=== PATIENT | female | born 1990 | race American Indian/Alaskan Native ===

== ENCOUNTER 2018-07-28 21:04 | Emergency (ER) | payer OTHER ==
[2018-07-28 21:15] VITALS: BMI 32.9
[2018-07-28 22:02] VITALS: BP 95/66; PULSE 94; RESP 18; TEMP 98.5; O2SAT 97
--- NOTE | 2018-07-29 04:44 | ED PDOC ---
Arrival/HPI - General Chief Complaint: Female Genitourinary Time Seen by Provider: 07/28/18 21:06 Historian: Patient - History of Present Illness Narrative History of Present Illness (Text): 27 y/o 36 week female presents to the ED c/o clear vaginal discharge and abdominal pain x 1 day. She thinks her water may have broken this morning. Symptoms began at 8am and patient presented to [facility] ED where she was evaluated by the obstetrics team and discharged home. Pt was advised to return to ED if symptoms persist, prompting visit to [facility]. Pt has been "leaking" clear vaginal fluid since 8am this morning. Associated mild lower abdominal cramping every 20 minutes, states it does not feel like contractions she had with her previous . Denies fever, chills, vaginal bleeding, back pain, nausea, vomiting, diarrhea, urinary symptoms, or any other associated symptoms. Past Medical History - Provider Review Nursing Documentation Reviewed: Yes - Infectious Disease Hx of Infectious Diseases: None - Psychiatric Hx Substance Use: No - Anesthesia Hx Anesthesia: No Family/Social History - Physician Review Nursing Documentation Reviewed: Yes Family/Social History: No Known Family HX Smoking Status: Never Smoked Hx Alcohol Use: No Hx Substance Use: No Allergies/Home Meds Allergies/Adverse Reactions: Allergies No Known Allergies Allergy (Verified 07/28/18 21:15) Review of Systems - Review of Systems Constitutional: Normal. absent: Fevers Eyes: Normal. absent: Vision Changes ENT: Normal. absent: Sore Throat, Sinus Congestion Respiratory: Normal. absent: SOB, Cough Cardiovascular: Normal. absent: Chest Pain, Palpitations Gastrointestinal: Abdominal Pain. absent: Nausea, Vomiting Genitourinary Female: Vaginal Discharge. absent: Dysuria Musculoskeletal: Normal. absent: Back Pain, Neck Pain Skin: Normal. absent: Rash Neurological: Normal. absent: Headache, Dizziness Physical Exam Vital Signs Reviewed: Yes Vital Signs Temp Pulse Resp BP Pulse Ox 07/28/18 21:05 98.5 F 94 H 18 95/66 L 97 Temperature: Afebrile Blood Pressure: Hypotensive Pulse: Regular Respiratory Rate: Normal Appearance: Positive for: Well-Appearing, Non-Toxic, Comfortable Pain Distress: None Mental Status: Positive for: Alert and Oriented X 3 - Systems Exam Head: Present: Atraumatic, Normocephalic Pupils: Present: PERRL Extroacular Muscles: Present: EOMI Conjunctiva: Present: Normal Mouth: Present: Moist Mucous Membranes Neck: Present: Normal Range of Motion Respiratory/Chest: Present: Clear to Auscultation, Good Air Exchange. No: Respiratory Distress, Accessory Muscle Use Cardiovascular: Present: Regular Rate and Rhythm, Normal S1, S2, Peripheal Pulses Present Abdomen: Present: Tenderness (mild LLQ), Normal Bowel Sounds, Other (gravid). No: Distention, Peritoneal Signs Genitourinary/Pelvic Exam: Present: Normal External Genitalia, Vaginal Discharge (clear thin discharge), Other (No cervical dilation). No: Vaginal Bleeding, Cervical Motion Tendernes, Odor Back: Present: Normal Inspection. No: CVA Tenderness Upper Extremity: Present: Normal Inspection, Normal ROM, NORMAL PULSES, Neurovascularly Intact, Capillary Refill < 2s. No: Cyanosis, Edema, Temperature Abnormalties Lower Extremity: Present: Normal Inspection, Normal ROM Neurological: Present: GCS=15, Speech Normal, Motor Func Grossly Intact, Normal Sensory Function, Gait Normal Skin: Present: Warm, Dry, Normal Color. No: Rashes Psychiatric: Present: Alert, Oriented x 3, Normal Insight, Normal Concentration, Normal Affect, Normal Mood Medical Decision Making ED Course and Treatment: Initial Plan: * Transfer [facility] Discussed with patient the possibility of rupture of membranes with patient and the necessity of transfer to [facility] for obstetric evaluation which is not offered here at [facility]. Patient adamantly refusing transfer. Wishes to leave AMA. Risks of leaving AMA to self and fetus discussed in depth with patient. She continues to wish to leave. Advised patient to followup with [facility] or her private OBGYN as soon as possible. Pt verbalizes understanding, states she will be driven to [facility] tonight by her significant other. Case discussed with ED attending Dr. Castellanos who agrees with plan of care. Pt with stable vitals in no acute distress at this time. No cervical dilation appreciated on pelvic exam. The patient is choosing to leave against medical advice. I have personally explained to the patient that choosing to do so may result in permanent bodily harm, disability, or to herself and unborn child. I have discussed at great length that without further evaluation and monitoring there may be unforeseen circumstances and/or deterioration causing permanent bodily harm or to herself or unborn child as a result of their choice. The patient is alert, oriented, and shows the mental capacity to make clear decisions regarding the patients health care at this time. The patient continues to wish to leave against medical advice. In light of the patients decision to leave against medical advice, follow-up has been arranged and the patient is aware of the importance to following up as instructed. The patient has been advised that they should return to the emergency room immediately if they change their mind at any time, or if their condition begins to change or worsen in any way. Disposition/Present on Arrival - Present on Arrival Any Indicators Present on Arrival: No History of DVT/PE: No History of Uncontrolled Diabetes: No Urinary Catheter: No History of Decub. Ulcer: No History Surgical Site Infection Following: None - Disposition Have Diagnosis and Disposition been Completed?: No Diagnosis: Abdominal pain during in third trimester, Vaginal discharge during in third trimester Disposition: AGAINST MEDICAL ADVICE Disposition Time: 21:40 Condition: GUARDED
== END 2018-07-28 21:40 | disposition left against medical advice (07) ==
LOC: ED 21:04 → MERGE 21:04 → ED 21:40
DX: O26.893 Other specified pregnancy related conditions, third trimester (principal); Z3A.36 36 weeks gestation of pregnancy